=== PATIENT | female | born 1985 | race Two or more races ===

== ENCOUNTER 2022-07-23 03:13 | Emergency (ER) | payer SELFPAY ==
[~2022-07-23] VITALS: Ht 149.9 cm; Wt 67.1 kg
--- NOTE | 2022-07-23 03:34 | NUR ---
BIBPARTER FROM HOME C/O WITNESSED SEIZURE [id number] AGO. HIT R CHEEK ON COFFEE TABLE. +N/V. ON KEPPRA 500MG BID PT A/OX4. TOLERATING R/A WELL WITH NO RESP DISTRESS. CONNECTED PT TO POX AND MONITOR. SEIZURE SAFETY MEASURES IN PLACE.
[2022-07-23] MEDS ORDERED: ONDANSETRON HCL/PF 4 MG/2 ML VIAL ONE ×2 (03:45→06:01)
[2022-07-23] MEDS ORDERED: LEVETIRACETAM (500MG) 500 MG/5 ML VIAL IV ONE (03:45)
[2022-07-23] MEDS ORDERED: MORPHINE SULFATE INJ 4 MG/ML DISP.SYRIN ONE (03:46)
--- NOTE | 2022-07-23 03:46 | NUR ---
UA sample taken and sent to lab
[2022-07-23] MEDS ORDERED: IV NS 0.9% 1,000 ML BAG IV ONE (04:00)
[2022-07-23] MEDS ORDERED: LEVETIRACETAM (500MG) 500 MG in IV NS 0.9% 100 ML IV ONE (04:00)
[2022-07-23] MEDS ORDERED: ONDANSETRON HCL/PF 4 MG/2 ML VIAL IVP ONE (04:00)
[2022-07-23] MEDS ORDERED: MORPHINE SULFATE INJ 2 MG/ML DISP.SYRIN IV ONE ×2 (04:00→07:00)
--- NOTE | 2022-07-23 04:05 | NUR ---
LAC #20G S/L BLOOD COLLECTED AND SENT TO LAB
--- NOTE | 2022-07-23 04:11 | NUR ---
[facility]IVER FORM SIGNED AND NOTIFIED RADIOLOGY
--- NOTE | 2022-07-23 04:15 | NUR ---
Wheeled to CT via yulia with tech
--- NOTE | 2022-07-23 04:16 | NUR ---
Marianne castellanos in [facility] - 07/23/22 at 0416 by CAROL PT TAKEN TO CT VIA NONI
[2022-07-23 04:22] LABS: BASOPHILS % (AUTO) 0.3 % (0.0-2.0); EOSINOPHILS % (AUTO) 1.8 % (0.0-6.0); HEMATOCRIT 33 % (33-45); HEMOGLOBIN 10.5 g/dL (11.5-14.8); LYMPHOCYTES # (AUTO) 1.7 K/uL (0.8-4.8); LYMPHOCYTES % (AUTO) 20.5 % (20.0-44.0); MEAN CORPUSCULAR HGB CONC 32 g/dl (31.0-36.0); MEAN CORPUSCULAR VOLUME 82 fL (82-100); MONOCYTES # (AUTO) 0.3 K/uL (0.1-1.30); MONOCYTES % (AUTO) 4.2 % (2.0-12.0); NEUTROPHILS % (AUTO) 73.2 % (43.0-81.0); PLATELET COUNT (AUTO) 439 K/uL (150-450); RED BLOOD CELL COUNT(AUTO) 3.95 MIL/uL (4.0-5.2); WHITE BLOOD COUNT (AUTO) 8.2 K/uL (4.3-11.0)
[2022-07-23 04:25] LABS: BILIRUBIN,URINE NEGATIVE (NEGATIVE); COLOR,URINE YELLOW (YELLOW); LEUKOCYTE ESTERASE ,URINE 3+ (NEGATIVE); NITRITE, URINE NEGATIVE (NEGATIVE); PH,URINE 6.5 (5.0-8.0); PROTEIN,URINE NEGATIVE (NEGATIVE); UGLUCOSE NEGATIVE (NEGATIVE); UROBILINOGEN,URINE 0.2 EU/dL (0.2)
[2022-07-23 04:32] LABS: BACTERIA,URINE Few /HPF (None Seen); SQUAMOUS EPITHELIAL CELL,UR Moderate /HPF (None Seen)
[2022-07-23 04:44] LABS: ALANINE AMINOTRANSFERASE 47 U/L (12-78); ALBUMIN 3.8 g/dL (3.4-5.0); ALCOHOL, BLOOD < 3 mg/dL (0-0); ALKALINE PHOSPHATASE 117 U/L (46-116); ASPARTATE AMINOTRANSFERASE 30 U/L (15-37); BILIRUBIN,TOTAL 0.2 mg/dL (0.2-1.0); CALCIUM, SERUM 9.2 mg/dL (8.5-10.1); CARBON DIOXIDE 30 mmol/L (21-32); CHLORIDE 102 mmol/L (98-107); CREATININE 0.8 mg/dL (0.6-1.3); GLUCOSE 83 mg/dL (74-106); LIPASE 101 U/L (73-393); POTASSIUM 3.1 mmol/L (3.5-5.1); SODIUM SERUM 141 mmol/L (136-145); TOTAL PROTEIN, SERUM 7.9 g/dL (6.4-8.2); UREA NITROGEN, BLOOD 12 mg/dL (7-18)
[2022-07-23 05:00] LABS: BILIRUBIN,DIRECT 0.1 mg/dL (0.0-0.2)
--- NOTE | 2022-07-23 05:05 | NUR ---
PT BACK TO RM 10
[2022-07-23] MEDS ORDERED: ONDA4TAB5 PO (05:37)
[2022-07-23] MEDS ORDERED: AMOX-430 PO (05:37)
[2022-07-23] MEDS ORDERED: AMOX/CLAVULANATE 875 MG TABLET ONE (05:46)
[2022-07-23] MEDS ORDERED: ONDANSETRON HCL/PF 4 MG/2 ML VIAL IV ONE (06:00)
[2022-07-23] MEDS ORDERED: AMOX/CLAVULANATE 875 MG TABLET PO ONE (06:00)
[2022-07-23] MEDS ORDERED: POTASSIUM CHLORIDE 20 MEQ TAB.PRT.SR PO ONE ×2 (06:12→06:30)
--- NOTE | 2022-07-23 06:36 | NUR ---
Patient refused to take K-Dur 40 MEQ PO, per patient she cannot take it, she still fill nauseous. She will try later when she feels better.
[2022-07-23] MEDS ORDERED: MORPHINE SULFATE INJ 2 MG/ML DISP.SYRIN ONE (06:46)
[2022-07-23] MEDS ORDERED: diphenhydrAMINE HCL 50 MG/ML VIAL ONE (06:46)
[2022-07-23] MEDS ORDERED: METOCLOPRAMIDE HCL 10 MG/2 ML VIAL ONE (06:47)
[2022-07-23] MEDS ORDERED: diphenhydrAMINE HCL 50 MG/ML VIAL IV ONE (07:00)
[2022-07-23] MEDS ORDERED: METOCLOPRAMIDE HCL 10 MG/2 ML VIAL IV ONE (07:00)
--- NOTE | 2022-07-23 07:20 | NUR ---
RECEIVED PT FROM LEEANNA MONROY PT asleepy responded when call name
--- NOTE | 2022-07-23 08:20 | NUR ---
NO ACTIVE SZ
--- NOTE | 2022-07-23 08:50 | NUR ---
IV removed. Catheter intact and site benign. Pressure and 4x4 applied to site. No bleeding noted.
--- NOTE | 2022-07-23 08:51 | NUR ---
Patient discharged to home in stable condition. Written and verbal after care instructions given. Patient verbalizes understanding of instruction.
[2022-07-23 08:59] VITALS: BP 124/75
== END 2022-07-23 09:00 | disposition home or self-care (01) ==
LOC: ER 03:15
DX: S02.2XXA Fracture of nasal bones, initial encounter for closed fracture (principal); G40.909 Epilepsy, unspecified, not intractable, without status epilepticus; R11.2 Nausea with vomiting, unspecified; N39.0 Urinary tract infection, site not specified; Z88.8 Allergy status to other drugs, medicaments and biological substances; Z79.899 Other long term (current) drug therapy; W22.8XXA Striking against or struck by other objects, initial encounter; Y93.89 Activity, other specified; Y92.89 Other specified places as the place of occurrence of the external cause; Y99.8 Other external cause status
CPT/HCPCS: 99285; 96365; 96375; 93005; 96376; 76856; 70450; 70486; 74176; 85025; 80048; 87086; 83690; 80076; 84703; 81001; 36415; 84484; 85730; 82962; 80320; 80307; J1200; J2270 ×2; J2765; J2405 ×2; J7030 ×2; J1953; G0480